=== PATIENT | male | born 1955 | race Two or more races ===

== ENCOUNTER 2022-11-04 12:33 | Emergency (ER) | payer OTHER ==
[~2022-11-04] VITALS: Ht 180.3 cm; Wt 89.4 kg
[2022-11-04] MEDS ORDERED: VAZALORE81 MG PO (12:50)
[2022-11-04] MEDS ORDERED: CARTIA XT120 MG PO (12:50)
[2022-11-04] MEDS ORDERED: GLUMETZA500 MG PO (12:50)
[2022-11-04] MEDS ORDERED: ATORVASTATIN CA10 MG PO (12:51)
[2022-11-04] MEDS ORDERED: ZITHROMAX TRI-500 MG PO (13:37)
[2022-11-04] MEDS ORDERED: PAXLOVID 300-11 EACH PO (15:26)
== END 2022-11-04 15:36 | disposition home or self-care (01) ==
LOC: ER 12:33
DX: U07.1 COVID-19 (principal); E11.9 Type 2 diabetes mellitus without complications; Z79.84 Long term (current) use of oral hypoglycemic drugs; Z80.0 Family history of malignant neoplasm of digestive organs